=== PATIENT | female | born 1965 | race Caucasian/White ===

== ENCOUNTER 2020-02-02 12:44 | Emergency (ER) | payer BC ==
[2020-02-02 13:08] VITALS: O2SAT 99
[2020-02-02] MEDS ORDERED: BABY ASPIRIN 81 MG CHEW PO ONE (13:11)
[2020-02-02] MEDS ORDERED: Sodium Chloride 0.9% 1000 ML 1,000 ML IV SCH (13:15)
--- NOTE | 2020-02-02 13:16 | ERPHSYRPT ---
- History of Present Illness Time Seen by Provider: 02/02/20 13:15 Historian: patient Exam Limitations: no limitations Patient Subjective Stated Complaint: pt comes in with c/o chest pain that started 30 minutes [employer] and subsided after 10 minutes. 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 pt states she felt lightheaded, dizzy, sob, and crushing chest pain that she rated a 10/10 at that time. pt states that she rested and the pain went away. pt states that she currently has slight ache that she rates a 1/10. pt states the pain was in center of chest and did not radiate anywhere. pt skin is pwd at this time. pt is not diaphoretic. pt is not sob. radial pulses equal and strong. denies n/v. Triage Nursing Assessment: see above Physician History: pt comes in with c/o chest pain that started 30 minutes [employer] and subsided after 10 minutes. 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 pt states she felt lightheaded, dizzy, sob, and crushing chest pain that she rated a 10/10 at that time. pt states that she rested and the pain went away. pt states that she currently has slight ache that she rates a 1/10. pt states the pain was in center of chest and did not radiate anywhere. pt skin is pwd at this time. pt is not diaphoretic. pt is not sob. denies n/v. Timing/Duration: today Activities at Onset: activity Quality: pressure Location: central Chest Pain Radiation: no radiation Severity of Pain-Max: moderate Severity of Pain-Current: none Modifying Factors: Improves With: nothing Associated Symptoms: denies symptoms Prior Chest Pain/Cardiac Workup: no prior chest pain Nitro Today/Relief: no nitro taken today Aspirin Treatment Today: 81 mg x 1 Allergies/Adverse Reactions: bee venom protein (honey bee) Allergy (Verified 02/02/20 13:08) Home Medications: Atorvastatin Calcium [Lipitor] 20 mg PO DAILY 02/02/20 [History] PANTOPRAZOLE 40 mg Tablet [Protonix 40MG Tablet] 40 mg PO DAILY 02/02/20 [ History] Travel Risk - International Travel Have you traveled outside of the country in past 3 weeks: No Have you or anyone close to you been diagnosed with or: No Do your reside in a community with a known COVID-19 case?: Yes If Yes where:: [place] - Coronavirus Screening Has patient experienced Coronavirus symptoms: No - Review of Systems Constitutional: No Fever, No Chills Eyes: No Symptoms Ears, Nose, & Throat: No Symptoms Respiratory: No Cough, No Dyspnea Cardiac: Chest Pain, No Edema, No Syncope Abdominal/Gastrointestinal: No Abdominal Pain, No Nausea, No Vomiting, No Diarrhea Genitourinary Symptoms: No Dysuria Musculoskeletal: No Back Pain, No Neck Pain Skin: No Rash Neurological: No Dizziness, No Focal Weakness, No Sensory Changes Psychological: No Symptoms Endocrine: No Symptoms All Other Systems: Reviewed and Negative - Past Medical History Pertinent Past Medical History: Yes Neurological History: No Pertinent History ENT History: No Pertinent History Cardiac History: Other Respiratory History: No Pertinent History Endocrine Medical History: No Pertinent History Musculoskeletal History: No Pertinent History GI Medical History: Gallbladder Disease History: No Pertinent History Psycho-Social History: No Pertinent History Female Reproductive Disorders: No Pertinent History Other Medical History: "leaky valve" see Dr. Babin - Past Surgical History Past Surgical History: Yes Neuro Surgical History: No Pertinent History Cardiac: No Pertinent History Respiratory: No Pertinent History Gastrointestinal: Cholecystectomy, Hernia Repair Genitourinary: No Pertinent History Musculoskeletal: No Pertinent History Female Surgical History: No Pertinent History Other Surgical History: Gastric bypass, revision. - Social History Smoking Status: Never smoker Drug Use: none - Nursing Vital Signs Nursing Vital Signs: Initial Vital Signs Pulse Rate 59 L 02/02/20 12:44 Respiratory Rate 18 02/02/20 12:44 Blood Pressure 142/65 02/02/20 12:44 O2 Sat by Pulse Oximetry 99 02/02/20 12:44 Pain Scale Pain Intensity 0 - Physical Exam General Appearance: no apparent distress, alert Eye Exam: PERRL/EOMI, eyes nml inspection Ears, Nose, Throat Exam: normal ENT inspection, moist mucous membranes Neck Exam: normal inspection, non-tender, supple, full range of motion Respiratory Exam: normal breath sounds, lungs clear, No respiratory distress Cardiovascular Exam: regular rate/rhythm, normal heart sounds Gastrointestinal/Abdomen Exam: soft, No tenderness, No mass Back Exam: normal inspection, No CVA tenderness, No vertebral tenderness Extremity Exam: normal inspection, normal range of motion Neurologic Exam: alert, oriented x 3, cooperative, normal mood/affect, sensation nml, No motor deficits Skin Exam: normal color, warm, dry SpO2: 99 - Course Nursing assessment & vital signs reviewed: Yes Ordered Tests: Active Orders 24 hr Category Date Time Status Director Of Corporate Communications STAT Care 02/02/20 13:11 Active EKG-ER Only STAT Care 02/02/20 13:11 Active Oxygen-ED Only Nasal Cannula 2 lpm Care 02/02/20 13:11 Active CHEST 2 VIEWS (PA AND LAT) Stat Exams 02/02/20 13:11 Taken CBC W DIFF Stat Lab 02/02/20 13:11 Completed CMP Stat Lab 02/02/20 13:11 Completed TROPONIN Q3H Lab 02/02/20 13:15 Completed TROPONIN Q3H Lab 02/02/20 16:15 Ordered TROPONIN Q3H Lab 02/02/20 19:15 Ordered TROPONIN Q3H Lab 02/02/20 22:15 Ordered TROPONIN Q3H Lab 02/03/20 01:15 Ordered Medication Summary Generic Name Dose Route Start Last Admin Trade Name Freq PRN Reason Stop Dose Admin Sodium Chloride 1,000 mls @ 100 mls/hr 02/02/20 13:15 02/02/20 13:35 Sodium Chloride 0.9% 1000 Ml IV 03/03/20 13:14 100 mls/hr .Q10H MAHAMED Administration Discontinued Medications Generic Name Dose Route Start Last Admin Trade Name Freq PRN Reason Stop Dose Admin Aspirin 81 mg 02/02/20 13:11 02/02/20 13:38 Baby Aspirin 81 Mg Chew PO 02/02/20 13:12 Not Given STAT ONE Aspirin Confirm 02/02/20 13:29 Baby Aspirin 81 Mg Chew Administered 02/02/20 13:30 Dose 324 mg .ROUTE .NextFit-Desall ONE Lab/Rad Data: Laboratory Result Diagrams 02/02/20 13:11 02/02/20 13:11 Laboratory Results 02/02/20 02/02/20 02/02/20 Range/Units 13:15 13:11 13:11 WBC 7.0 (4.0-10.5) K/mm3 RBC 4.29 (4.1-5.4) M/mm3 Hgb 13.6 (12.0-16.0) gm/dl Hct 40.0 (35-47) % MCV 93.2 (78-100) fl MCH 31.7 (26-32) pg MCHC 34.0 (32-36) g/dl RDW 13.8 (11.5-14.0) % Plt Count 228 (150-450) K/mm3 MPV 10.7 (7.5-11.0) fl Gran % 43.1 (36.0-66.0) % Eos # (Auto) 0.21 (0-0.5) Absolute Lymphs (auto) 3.38 (1.0-4.6) Absolute Monos (auto) 0.35 (0.0-1.3) Lymphocytes % 48.5 H (24.0-44.0) % Monocytes % 5.0 (0.0-12.0) % Eosinophils % 3.0 (0.00-5.0) % Basophils % 0.4 (0.0-0.4) % Absolute Granulocytes 3.00 (1.4-6.9) Basophils # 0.03 (0-0.4) Sodium 141 (137-145) mmol/L Potassium 3.7 (3.5-5.1) mmol/L Chloride 104 (98-107) mmol/L Carbon Dioxide 29 (22-30) mmol/L Anion Gap 12.1 (5-15) MEQ/L BUN 11 (7-17) mg/dL Creatinine 0.64 (0.52-1.04) mg/dL Estimated GFR > 60.0 ML/MIN Glucose 99 (74-106) mg/dL Calcium 9.4 (8.4-10.2) mg/dL Total Bilirubin 0.40 (0.2-1.3) mg/dL AST 50 H (14-36) U/L ALT 34 (0-35) U/L Alkaline Phosphatase 161 H (38-126) U/L Troponin I < 0.012 (0.000-0.034) ng/mL Serum Total Protein 8.1 (6.3-8.2) g/dL Albumin 4.5 (3.5-5.0) g/dL - Progress Progress: improved Air Movement: good Progress Note: 02/02/20 14:21 Patient remained chest pain-free during ER visit. Patient EKG troponins and all other labs were within normal range. Patient blood pressure and other vitals remained within normal range during emergency room course. Patient is strongly advised to follow-up with her industrial accountant for further testing. She is advised to start isosorbide mononitrate 30 mg daily and aspirin 81 mg daily till she see her industrial accountant. If any symptoms recur advised to come back to emergency room. She is advised to stay off work for tomorrow. Blood Culture(s) Obtained: No Antibiotics given: No Counseled pt/family regarding: lab results, diagnosis, need for follow-up, rad results - Departure Departure Disposition: Home Clinical Impression: Chest pain with low risk for cardiac etiology, Angina of effort Condition: Stable Critical Care Time: Yes Critical Care Time(excluding separately billable procedures): Critical 30-74 mins Referrals: BLAIR WEN [Primary Care Provider] - Instructions: Chest Pain (DC), Atypical Chest Pain, Angina (DC) Additional Instructions: Please follow-up with her industrial accountant on Tuesday. Stay off work for tomorrow. You are prescribed medication for your angina symptoms which she had to take once a day until you see your industrial accountant. The main side effects is headache so please take Tylenol when you have a headache. If your symptoms recur or you develop more chest pain which stays more than 5 minutes come back to emergency room. Discharge/Care Plan ISRA GABRIEL was seen on 02/02/20 in the Emergency Room. The patient was counseled regarding Diagnosis,Lab results, Imaging studies, need for follow up and when to return to the Emergency Room. Prescriptions given: Discharge Note I have spoken with the patient and/or caregivers. I have explained the patient' s condition, diagnosis and treatment plan based on the information available to me at this time. I have answered the patient's and/or caregiver's questions and addressed any concerns. The patient and/or caregivers have as good understanding of the patient's diagnosis, condition and treatment plan as can be expected at this point. The vital signs have been stable. The patient's condition is stable and appropriate for discharge from the emergency department. The patient will pursue further outpatient evaluation with the primary care physician or other designated or consulting physician as outlined in the discharge instructions. The patient and/or caregivers are agreeable to this plan of care and follow-up instructions have been explained in detail. The patient and/or caregivers have received these instruction. The patient/and or caregivers are aware that any significant change in condition or worsening of symptoms should prompt an immediate return to this or the closest emergency department or call 911. ISRA GABRIEL was seen on 02/02/20 n the Emergency Room. At that time you were treated for an emergent condition, during your visit Laboratory, Radiology and/ or other procedures may have been ordered. It is very important that you follow- up with your Primary Care Physician BLAIR WEN within the next 24-48 hours to review your Emergency Room visit and the final results of testing that was ordered. Some test results such as Urine Cultures, Blood Cultures, and other cultures if ordered will not be finalized for 24-48 hours. If you do not have a Primary Care Provider please call the medical records department at [phone] ext [phone] to obtain a copy of your results or you may sign into our patient portal to obtain these results by visiting us @ [email or web address] and completing the following steps: 1. Click on the Patient Portal link 2. Click the Patient Self Enrollment Link to complete the enrollment form and entering your 3. Once the enrollment form is completed you will receive an email with a temporary ID and password at the email address you provided. 4. Next choose a user name and password. Your user name must be at least 4 characters long and your password must be at least 4 characters long. 5. Choose a security question from the list and provide your answer to the question. If you already have signed into the Health Portal you may access your Health Care Information 28/03 by the following steps: 1. Login to our website @ [email or web address] 2. Enter your original user name and password. FAQS The [facility] Health Portal is an online tool that contains your Lab Results, Radiology Reports, Visit History, Discharge Instructions and Health Summary Lab and Radiology Results will not be available for 72 hours on the portal. The Portal is a secure site, passwords are encryted and URLs are re-written so they cannot be copied and pasted. You and authorized family members are the only ones who can access your Portal. Also there is a timeout feature that protects your information if you leave the Portal page open. If you have technical difficulty please use the Contact Us link on the page this will allow you to submit any questions you have regarding the Portal or you may contact the Medical Record Department at [phone]. Prescriptions: Isosorbide Mononitrate 20 mg [monoKET 20 MG] 20 mg PO DAILY #30 tablet
[2020-02-02 13:23] LABS: BASOPHIL % 0.4 % (0.0-0.4); Basophil (Absolute #) 0.03 (0-0.4); Eosinophil (Absolute #) 0.21 (0-0.5); Hemoglobin 13.6 gm/dl (12.0-16.0); Lymphocyte (Absolute #) 3.38 (1.0-4.6); Lymphocytes % 48.5 % (24.0-44.0); Mean Cell Volume 93.2 fl (78-100); Mean Corpuscular Hemoglobin 31.7 pg (26-32); Mean Platelet Volume 10.7 fl (7.5-11.0); Monocyte (Absolute #) 0.35 (0.0-1.3); Neutrophil % 43.1 % (36.0-66.0); Platelet Count 228 K/mm3 (150-450); Red Blood Count 4.29 M/mm3 (4.1-5.4); Red Cell Distribution Width 13.8 % (11.5-14.0)
[2020-02-02] MEDS ORDERED: Sodium Chloride 0.9% 1000 ML 1,000 ML ONE (13:29)
[2020-02-02] MEDS ORDERED: BABY ASPIRIN 81 MG CHEW ONE (13:29)
[2020-02-02 13:30] LABS: ALBUMIN 4.5 g/dL (3.5-5.0); ALKALINE PHOSPHATASE 161 U/L (38-126); ANION GAP 12.1 MEQ/L (5-15); BLOOD UREA NITROGEN 11 mg/dL (7-17); CHLORIDE 104 mmol/L (98-107); Calcium 9.4 mg/dL (8.4-10.2); Carbon Dioxide 29 mmol/L (22-30); Creatinine 1 0.64 mg/dL (0.52-1.04); Glucose 99 mg/dL (74-106); Potassium 3.7 mmol/L (3.5-5.1); SGOT/AST 50 U/L (14-36); SGPT/ALT 34 U/L (0-35); SODIUM 141 mmol/L (137-145); Total Protein 8.1 g/dL (6.3-8.2)
[2020-02-02 14:36] VITALS: BP 134/86; PULSE 64
--- NOTE | 2020-02-02 20:46 | XRAY ---
Indication: Sternal chest pain, dizziness, sweating, and lightheadedness. Comparison: None PA/lateral chest demonstrates normal heart and lungs with incidental tiny posterior gutter calcified granuloma. Bony thorax intact.
== END 2020-02-02 14:42 | disposition home or self-care (01) ==
LOC: ED 12:44
DX: R07.9 Chest pain, unspecified (principal); I20.9 Angina pectoris, unspecified; R42 Dizziness and giddiness; R06.02 Shortness of breath
CPT/HCPCS: 36000; 36415; 71046; 80053; 84484; 85025; 93005; 93041; 99284; 99291; A9270-GY

== ENCOUNTER 2020-02-02 15:00 | Observation (INO) | payer BC ==
[2020-02-02] MEDS ORDERED: XYLOCAINE HCl Viscous ONE (15:10)
--- NOTE | 2020-02-02 15:10 | ERPHSYRPT ---
- History of Present Illness Time Seen by Provider: 02/02/20 15:07 Historian: patient Exam Limitations: no limitations Physician History: 54-year-old patient just discharged 5 minutes ago from the emergency room went out and started having substernal chest pain again so she came back. Please see the previous encounter ER notes for all other information. We are going to admit this patient as observation. Aspirin Treatment Today: 81 mg x 1 Allergies/Adverse Reactions: bee venom protein (honey bee) Allergy (Verified 02/02/20 13:08) Home Medications: Atorvastatin Calcium [Lipitor] 20 mg PO DAILY 02/02/20 [History] PANTOPRAZOLE 40 mg Tablet [Protonix 40MG Tablet] 40 mg PO DAILY 02/02/20 [ History] - Review of Systems Constitutional: No Fever, No Chills Eyes: No Symptoms Ears, Nose, & Throat: No Symptoms Respiratory: No Cough, No Dyspnea Cardiac: Chest Pain, No Edema, No Syncope Abdominal/Gastrointestinal: No Abdominal Pain, No Nausea, No Vomiting, No Diarrhea Genitourinary Symptoms: No Dysuria Musculoskeletal: No Back Pain, No Neck Pain Skin: No Rash Neurological: No Dizziness, No Focal Weakness, No Sensory Changes Psychological: No Symptoms Endocrine: No Symptoms All Other Systems: Reviewed and Negative - Past Medical History Pertinent Past Medical History: Yes Neurological History: No Pertinent History ENT History: No Pertinent History Cardiac History: Other Respiratory History: No Pertinent History Endocrine Medical History: No Pertinent History Musculoskeletal History: No Pertinent History GI Medical History: Gallbladder Disease History: No Pertinent History Psycho-Social History: No Pertinent History Female Reproductive Disorders: No Pertinent History Other Medical History: "leaky valve" see Dr. Babin - Past Surgical History Past Surgical History: Yes Neuro Surgical History: No Pertinent History Cardiac: No Pertinent History Respiratory: No Pertinent History Gastrointestinal: Cholecystectomy, Hernia Repair Genitourinary: No Pertinent History Musculoskeletal: No Pertinent History Female Surgical History: No Pertinent History Other Surgical History: Gastric bypass, revision. - Social History Smoking Status: Never smoker Drug Use: none - Physical Exam General Appearance: no apparent distress, alert Eye Exam: PERRL/EOMI, eyes nml inspection Ears, Nose, Throat Exam: normal ENT inspection, moist mucous membranes Neck Exam: normal inspection, non-tender, supple, full range of motion Respiratory Exam: normal breath sounds, lungs clear, No respiratory distress Cardiovascular Exam: regular rate/rhythm, normal heart sounds Gastrointestinal/Abdomen Exam: soft, No tenderness, No mass Back Exam: normal inspection, No CVA tenderness, No vertebral tenderness Extremity Exam: normal inspection, normal range of motion Neurologic Exam: alert, oriented x 3, cooperative, normal mood/affect, sensation nml, No motor deficits Skin Exam: normal color, warm, dry - Course Nursing assessment & vital signs reviewed: Yes - Progress Progress: unchanged Discussed with : Kylie Counseled pt/family regarding: lab results, diagnosis, need for follow-up, rad results - Departure Departure Disposition: Observation Clinical Impression: Chest pain with low risk for cardiac etiology Condition: Fair Critical Care Time: No Referrals: BLAIR WEN [Primary Care Provider] -
[2020-02-02] MEDS ORDERED: MAALOX ES 30 ML UNIT DOSE ONE (15:11)
[2020-02-02] MEDS ORDERED: GI COCKTAIL 45 ML (Maalox/Lidocaine) PO ONE (15:16)
[2020-02-02] MEDS ORDERED: Pepcid 20 MG VIAL IV ONE ×2 (15:30→15:31)
[2020-02-02] MEDS ORDERED: Zofran 4 MG/2 ML VIAL IV ONE (16:05)
[2020-02-02] MEDS ORDERED: Zofran 4 MG/2 ML VIAL ONE (16:05)
[2020-02-02] MEDS ORDERED: Zofran 4 MG/2 ML VIAL IV PRN (16:39)
[2020-02-02] MEDS ORDERED: MAALOX ES 30 ML UNIT DOSE PO PRN (16:39)
[2020-02-02] MEDS ORDERED: Sodium Chloride 0.9% 500 ML 500 ML IV SCH (16:39)
[2020-02-02] MEDS ORDERED: TYLENOL 325 MG PO PRN (16:39)
[2020-02-02] MEDS ORDERED: MILK OF MAGNESIA 30 ML PO PRN (16:39)
[2020-02-02] MEDS ORDERED: MORPHINE SULFATE 2 MG INJ IV PRN (16:39)
[2020-02-02] MEDS ORDERED: Senokot-S Tablet PO PRN (16:39)
[2020-02-02] MEDS ORDERED: ZOCOR 20MG PO SCH (22:00)
[2020-02-02] MEDS: Pepcid 20 MG VIAL IV SCH (23:00)
[2020-02-02] MEDS: NITRO-BID 2% UD PACKETS TOP SCH (23:07)
[2020-02-03] MEDS: NITRO-BID 2% UD PACKETS TOP SCH (05:20)
[2020-02-03 08:31] VITALS: PULSE 66
[2020-02-03] MEDS: Pepcid 20 MG VIAL IV SCH (09:39)
[2020-02-03] MEDS ORDERED: Protonix 40MG Tablet PO SCH (10:00)
[2020-02-03] MEDS ORDERED: monoKET 20 MG PO SCH (10:00)
[2020-02-03 12:07] VITALS: BP 92/51; O2SAT 96
--- NOTE | 2020-02-03 13:09 | PCM.SSS ---
History of Present Illness - Chief Complaint Chief Complaint: chest pain r/o [place], Hx of gastric bypass surgery History of Present Illness: is a 54 year old female pt of Tawana Cordova with obesity (s/p gastric bypass), hyperlipidemia, peptic ulcer dz, and hiatal hernia who was admitted through ER with chest pain to rule out [place]. She had been in the ER earlier in the evening with chest pain, given a GI cocktail and the pain resolved so pt left. She was still in her car when she started having pain again - substernal , 10/10 sharp pain, onradiating, lasted 10 min. Pt was diaphoretic, SOB, nauseated, and having palpitations. Last night the chest was just "bruised feeling" and today there is no pain at all. Pt has FHx of heart disease - her mom had CABG and stents, CHF - beginning in her mid 50s. PGM of [place] in her 70s. Pt has never been a smoker. Does not drink for years (used to be a social drinker). Pt had a Lexiscan stress test and echo in Sep [address] Elliott - was supposed to f/u with him in December but was only able to do telephone consult due to COVID. Pt's troponins have been neg x 5 here, and EKGs nonacute (NSR and sinus bradycardia, no ST changes indicative of ischemia). - Review of Systems Respiratory: Short Of Breath Cardiac: Chest Pain, Edema (occ in LE), Palpitations Neurological: Dizziness (yesterday ) Psychological: Other (diaphoresis) Medications & Allergies Home Medications: Home Medication List Atorvastatin Calcium [Lipitor] 20 mg PO HS 02/02/20 [History Confirmed 02/02/20] Isosorbide Mononitrate 20 mg [monoKET 20 MG] 20 mg PO DAILY #30 tablet 02/01 [Rx Confirmed 02/02/20] PANTOPRAZOLE 40 mg Tablet [Protonix 40MG Tablet] 40 mg PO DAILY 02/02/20 [ History Confirmed 02/02/20] Allergies/Adverse Reactions: Allergies Allergy/AdvReac Type Severity Reaction Status Date / Time bee venom protein (honey bee) Allergy Verified 02/02/20 13:08 - Past Medical History Past Medical History: Yes Neurological History: No Pertinent History ENT History: No Pertinent History Cardiac History: Other Respiratory History: No Pertinent History Endocrine Medical History: No Pertinent History Musculoskelatal History: No Pertinent History GI Medical History: Gallbladder Disease History: No Pertinent History Pyscho-Social History: No Pertinent History Reproductive Disorders: No Pertinent History Comment: "leaky valve" see Dr. Babin - Female History Are you now?: No - Past Surgical History Past Surgical History: Yes Neuro Surgical History: No Pertinent History Cardiac History: No Pertinent History Respiratory Surgery: No Pertinent History GI Surgical History: Cholecystectomy, Hernia Repair Genitourinary Surgical Hx: No Pertinent History Musculskeletal Surgical Hx: No Pertinent History Female Surgical History: No Pertinent History Other Surgical History: Gastric bypass, revision. Intestines removed. - Social History Smoking Status: Never smoker Exposure to second hand smoke: No Alcohol: None Drug Use: none - Physical Exam Vital Signs: Vital Signs - 24 hr Temp Pulse Pulse Resp BP Pulse Ox 02/03/20 12:06 98.1 F 66 18 92/51 96 02/03/20 08:00 97.6 F 66 18 121/60 94 L 02/03/20 04:00 97.7 F 55 L 18 125/56 96 02/02/20 23:39 97.6 F 62 18 133/66 97 02/02/20 20:00 97.9 F 62 19 136/62 94 L 02/02/20 17:02 97.9 F 74 16 129/98 98 02/02/20 16:39 97.9 F 74 16 129/98 98 02/02/20 16:04 56 L 16 137/67 99 02/02/20 15:05 98 F 66 66 22 95/68 98 General Appearance: no apparent distress, alert, obese Neurologic Exam: oriented x 3, cooperative Eye Exam: eyes nml inspection Ears, Nose, Throat Exam: moist mucous membranes Neck Exam: normal inspection Respiratory Exam: normal breath sounds, lungs clear, No crackles/rales, No rhonchi, No wheezing Cardiovascular Exam: regular rate/rhythm, normal heart sounds, No murmur Gastrointestinal/Abdomen Exam: soft, normal bowel sounds, No tenderness, No distention, No mass, No guarding, No rebound Extremity Exam: No pedal edema, No swelling Skin Exam: normal color, warm, dry, No rash Results - Labs Lab/Micro Results: Lab Results-Last 24 Hours 0502/02/20 02/02/20 Range/Units 17:29 20:34 23:29 Troponin I < 0.012 < 0.012 < 0.012 (0.000-0.034) ng/mL Triglycerides (30-150) mg/dL Cholesterol (50-200) mg/dL LDL Cholesterol (30-100) mg/dL HDL Cholesterol (40-60) mg/dL Heart Disease Risk Ratio 02/03/20 02/03/20 Range/Units 03:17 03:17 Troponin I < 0.012 (0.000-0.034) ng/mL Triglycerides 127 (30-150) mg/dL Cholesterol 169 (50-200) mg/dL LDL Cholesterol 109 H (30-100) mg/dL HDL Cholesterol 56 (40-60) mg/dL Heart Disease Risk Ratio 3.0 - Other Procedures and Tests Respiratory Therapy 02/04/20 05:00 EKG DAILY 02/05/20 05:00 EKG ONCE Assessment/Plan (1) Chest pain Current Visit: Yes Status: Acute Qualifiers: Chest pain type: other chest pain Qualified Code(s): R07.89 - Other chest pain; R07.8 - Other chest pain Assessment & Plan: [place] ruled out. She needs to see Dr. Elliott sooner than her next scheduled appointment in 3 months - she needs to contact them tomorrow (Tuesday) and let them know that she was in the hospital overnight for chest pain ruleout. Code(s): R07.9 - CHEST PAIN, UNSPECIFIED (2) History of gastric bypass Current Visit: Yes Status: Chronic Code(s): Z98.84 - BARIATRIC SURGERY STATUS (3) Obesity Current Visit: Yes Status: Chronic Qualifiers: Obesity type: due to excess calories Obesity classification: adult class 2 (BMI 35 - 39.9) Code(s): E66.9 - OBESITY, UNSPECIFIED Hospital Summary - Vitals & Intake/Output Vital Signs: Vital Signs Temperature 98.1 F 02/03/20 12:06 Pulse Rate 66 02/03/20 12:06 Respiratory Rate 18 02/03/20 12:06 Blood Pressure 92/51 02/03/20 12:06 O2 Sat by Pulse Oximetry 96 02/03/20 12:06 Intake & Output: Intake & Output 02/01/20 02/02/20 02/03/20 02/04/20 11:59 11:59 11:59 11:59 Intake Total 1145 320 Output Total 500 Balance 645 320 Weight 95.5 kg - Lab Lab Results-Last 24 Hrs: Lab Results-Last 24 Hours 02/02/20 02/02/20 02/02/20 Range/Units 17:29 20:34 23:29 Troponin I < 0.012 < 0.012 < 0.012 (0.000-0.034) ng/mL Triglycerides (30-150) mg/dL Cholesterol (50-200) mg/dL LDL Cholesterol (30-100) mg/dL HDL Cholesterol (40-60) mg/dL Heart Disease Risk Ratio 02/03/20 02/03/20 Range/Units 03:17 03:17 Troponin I < 0.012 (0.000-0.034) ng/mL Triglycerides 127 (30-150) mg/dL Cholesterol 169 (50-200) mg/dL LDL Cholesterol 109 H (30-100) mg/dL HDL Cholesterol 56 (40-60) mg/dL Heart Disease Risk Ratio 3.0 - Procedures and Test Procedures and Tests throughout Hospitalization: Therapy Orders & Screens 02/02/20 21:00 EKG ONCE Comment: Diagnosis: chest pain r/o [place], Hx of gastric bypass surgery 02/03/20 05:00 EKG ONCE Comment: Diagnosis: chest pain r/o [place], Hx of gastric bypass surgery 02/04/20 05:00 EKG DAILY Comment: Diagnosis: chest pain r/o [place], Hx of gastric bypass surgery 02/05/20 05:00 EKG ONCE Comment: Diagnosis: chest pain r/o [place], Hx of gastric bypass surgery - Discharge Disposition: Home, Self-Care Condition: Fair Prescriptions: No Action PANTOPRAZOLE 40 mg Tablet [Protonix 40MG Tablet] 40 mg PO DAILY Atorvastatin Calcium [Lipitor] 20 mg PO HS Isosorbide Mononitrate 20 mg [monoKET 20 MG] 20 mg PO DAILY #30 tablet Instructions: Chest Pain (DC) Forms: Discharge Instructions, Work/School Release Form
--- NOTE | 2020-02-03 13:17 | PCM.DCORD ---
- Discharge Disposition: Home, Self-Care Condition: Good Prescriptions: New Mag Hydrox/Al Hydrox/Simeth [Maalox Es 30 ml Unit Dose] 30 ml PO Q4H PRN PRN udcup PRN Reason: Indigestion Continue PANTOPRAZOLE 40 mg Tablet [Protonix 40MG Tablet] 40 mg PO DAILY Atorvastatin Calcium [Lipitor] 20 mg PO HS Isosorbide Mononitrate 20 mg [monoKET 20 MG] 20 mg PO DAILY #30 tablet Instructions: Chest Pain (DC) Follow up with: BLAIR WEN [Primary Care Provider] - 1 Week Forms: Discharge Instructions, Work/School Release Form
== END 2020-02-03 14:48 | disposition home or self-care (01) ==
LOC: ED 15:00 → MED SURG 16:37
PROVIDERS: ADMIT Family Medicine; ATTEND Family Medicine
DX: R07.9 Chest pain, unspecified (principal); Z98.84 Bariatric surgery status; E78.5 Hyperlipidemia, unspecified; K44.9 Diaphragmatic hernia without obstruction or gangrene; K27.9 Peptic ulcer, site unspecified, unspecified as acute or chronic, without hemorrhage or perforation; R42 Dizziness and giddiness; R06.02 Shortness of breath; R00.2 Palpitations; E66.9 Obesity, unspecified; Z68.35 Body mass index [BMI] 35.0-35.9, adult; Z79.899 Other long term (current) drug therapy
CPT/HCPCS: 36000; 36415; 71046; 80053; 80061; 83721; 84484; 85025; 93005; 93041; 93268; 96374; 96375; 99284; 99285; 99291; G0378; J2405; A9270-GY

== ENCOUNTER 2021-02-27 08:47 | Emergency (ER) | payer BC, OTHER ==
--- NOTE | 2021-02-27 09:26 | ERPHSYRPT ---
- History of Present Illness Time Seen by Provider: 02/27/21 09:20 Source: patient Exam Limitations: no limitations Patient Subjective Stated Complaint: L upper arm pain, contusion from work yesterday Triage Nursing Assessment: pt to ED c/o L upper arm pain from walking into lever at work yesterday. noted large contusion to L upper arm that is warm to touch. pt states pain is nothing at rest but up to 5/10 with pressure. full ROM. no hx DVT Physician History: Patient is a 55-year-old white female who is employed at the [employer] she was walking through a gait which a lever was shifted and caused a blow directly to the biceps muscle left upper arm she has a large bruised area which has heat. She has full range of motion. This occurred just prior to yesterday. Method of Injury: direct blow Quality: constant Severity of Pain-Max: moderate Severity of Pain-Current: moderate Extremities Pain Location: arm: left Modifying Factors: Improves With: movement Associated Symptoms: none Allergies/Adverse Reactions: bee venom protein (honey bee) Allergy (Verified 02/02/20 13:08) Home Medications: PANTOPRAZOLE 40 mg Tablet [Protonix 40MG Tablet] 40 mg PO DAILY 02/02/20 [History] Hx Tetanus, Diphtheria Vaccination/Date Given: Yes Hx Influenza Vaccination/Date Given: No Hx Pneumococcal Vaccination/Date Given: No Immunizations Up to Date: No Travel Risk - International Travel Have you traveled outside of the country in past 3 weeks: No - Coronavirus Screening Are you exhibiting any of the following symptoms?: No Close contact with a COVID-19 positive Pt in past 14-21 Days: No - Vaccine Status Have you recieved a Covid-19 vaccination: No - Review of Systems Constitutional: No Fever, No Chills Eyes: No Symptoms Ears, Nose, & Throat: No Symptoms Respiratory: No Cough, No Dyspnea Cardiac: No Chest Pain, No Edema, No Syncope Abdominal/Gastrointestinal: No Abdominal Pain, No Nausea, No Vomiting, No Diarrhea Genitourinary Symptoms: No Dysuria Musculoskeletal: No Back Pain, No Neck Pain Skin: No Rash Neurological: No Dizziness, No Focal Weakness, No Sensory Changes Psychological: No Symptoms Endocrine: No Symptoms All Other Systems: Reviewed and Negative - Past Medical History Pertinent Past Medical History: Yes Neurological History: No Pertinent History ENT History: No Pertinent History Cardiac History: Other Respiratory History: No Pertinent History Endocrine Medical History: No Pertinent History Musculoskeletal History: No Pertinent History GI Medical History: GERD, Gallbladder Disease History: No Pertinent History Psycho-Social History: No Pertinent History Female Reproductive Disorders: No Pertinent History Other Medical History: "leaky valve" see Dr. Babin - Past Surgical History Past Surgical History: Yes Neuro Surgical History: No Pertinent History Cardiac: No Pertinent History Respiratory: No Pertinent History Gastrointestinal: Cholecystectomy, Hernia Repair Genitourinary: No Pertinent History Musculoskeletal: No Pertinent History Female Surgical History: No Pertinent History Other Surgical History: Gastric bypass, revision. Intestines removed. - Social History Smoking Status: Never smoker Exposure to second hand smoke: No Drug Use: none Patient Lives Alone: No - Female History Hx Now: No (menopause) - Nursing Vital Signs Nursing Vital Signs: Initial Vital Signs Temperature 97.9 F 02/27/21 09:09 Pulse Rate 51 L 02/27/21 09:09 Respiratory Rate 18 02/27/21 09:09 Blood Pressure 146/72 02/27/21 09:09 O2 Sat by Pulse Oximetry 97 02/27/21 09:09 Pain Scale Pain Intensity 0 - Physical Exam General Appearance: alert Eyes, Ears, Nose, Throat Exam: moist mucous membranes Neck Exam: non-tender, supple Cardiovascular/Respiratory Exam: chest non-tender, normal breath sounds, regular rate/rhythm, no respiratory distress Abdominal Exam: non-tender, No guarding Back Exam: normal inspection, No vertebral tenderness Shoulder Exam: soft tissue tenderness (Examination of the left upper extremity from the shoulder to the elbow does show a large ecchymotic area about 10 cm in diameter warm to the touch there is a full range of motion good strength with flexion of the elbow the biceps appears to be intact), swelling Elbow/Forearm Exam: normal inspection Wrist Exam: normal inspection Hand Exam: normal inspection Neuro/Tendon Exam: normal sensation, normal motor functions Mental Status Exam: alert, oriented x 3, cooperative Skin Exam: normal color, warm, dry SpO2: 97 - Course Nursing assessment & vital signs reviewed: Yes - Radiology Exams Left Humerus X-ray Interpretation: Interpreted by me, Negative - Radiology Ultrasound Exam Venous Upper Extremity Ultrasound: Other (Initial report is of no venous thrombosis there is a hematoma no sign of infection.) Ordered Tests: Active Orders 24 hr Category Date Time Status HUMERUS Stat Exams 02/27/21 08:58 Completed Ultrasound Unilateral Extremities [VENOUS UNILAT/ Exams 02/27/21 10:05 Ordered LIMITED EXTREMIT] [US] Stat - Departure Clinical Impression: Contusion of arm, left Condition: Stable Critical Care Time: No Referrals: [facility] [Primary Care Provider] - Instructions: Contusion (DC)
--- NOTE | 2021-02-27 09:58 | XRAY ---
Exam: Two-view left humerus study from 02/27/2021. Comparison: None. Indication: Patient struck mid left humerus at work, bruising, pain. Findings: 2 AP views of the left humerus in different projections were obtained. I see no acute fracture or other focal bone lesion. The soft tissues about the left arm appear unremarkable. The left shoulder joint space is not seen in profile. The left elbow joint space appears unremarkable. Impression: 1. No acute left humerus fracture is seen.
[2021-02-27 11:11] VITALS: BP 138/86; PULSE 54
[2021-02-27 11:32] VITALS: O2SAT 97
--- NOTE | 2021-02-27 13:24 | XRAY ---
Exam: Duplex Doppler venous ultrasound examination of the left upper extremity from 02/27/2021. Comparison: None. Indication: Left upper extremity bruise; rule out left upper extremity DVT. Findings: The left internal jugular vein reveals normal color blood flow and transducer compression. Doppler signal is normal at this level. The left subclavian vein also reveals normal color blood flow and Doppler signal. Normal transducer compression, color blood flow, and Doppler signal are seen within factory representative segments of the left axillary vein, proximal, mid, and distal left brachial vein, basilic vein, cephalic vein, radial vein, and ulnar vein. No echogenic thrombus was seen. In addition, sonogram images were obtained of the mid upper outer aspect of the left arm at the area of concern. There is a focal area of mixed echogenicity and sonolucency, collectively measuring 2.9 cm x 1.5 cm x 2.9 cm which is believed to represent a soft tissue hematoma. A few areas of sonolucency are seen within this region, the largest oval area measuring 1.1 cm in greatest diameter followed by another round area of sonolucency measuring 0.7 cm in diameter. No significant increased color blood flow is seen at these sites. Impression: 1. I see no evidence of deep venous thrombosis within the left upper extremity. 2. At the area of concern, there appears to be an oval-shaped hematoma measuring 2.9 cm x 1.5 cm x 2.9 cm. Also, this site reveals heterogeneous echogenic density, although there are at least a couple small areas of sonolucency seen within this hematoma. No significant increased color blood flow is seen at this site.
== END 2021-02-27 11:54 | disposition home or self-care (01) ==
LOC: ED 08:47
DX: S40.022A Contusion of left upper arm, initial encounter (principal); M79.622 Pain in left upper arm; W22.8XXA Striking against or struck by other objects, initial encounter; Y92.149 Unspecified place in prison as the place of occurrence of the external cause; Y99.0 Civilian activity done for income or pay
CPT/HCPCS: 73060; 93971; 99283

== ENCOUNTER 2021-10-13 06:25 | Day surgery (SDC) | payer BC ==
[2021-10-13] MEDS ORDERED: Lactated Ringers 1,000 ML IV SCH (07:00)
[2021-10-13] MEDS ORDERED: Lactated Ringers 1,000 ML IV ONE (07:14)
[2021-10-13] MEDS ORDERED: KEFZOL 1 GM/50 ML PREMIX** 1 GM/50 ML IVPB IV SCH (07:15)
[2021-10-13 07:19] VITALS: O2SAT 97
[2021-10-13] MEDS ORDERED: SUBLIMAZE 100 MCG/2 ML ONE ×2 (07:58→09:15)
[2021-10-13] MEDS ORDERED: Decadron 4 MG INJ ONE (07:58)
[2021-10-13] MEDS ORDERED: Xylocaine-Mpf 2% 5 Ml Vial ONE ×2 (07:58→08:06)
[2021-10-13] MEDS ORDERED: Versed 2 MG/2 ML Injection ONE (07:58)
[2021-10-13] MEDS ORDERED: DIPRIVAN 200 MG/20 ML IV ONE ×2 (07:58→08:06)
[2021-10-13] MEDS ORDERED: Zofran 4 MG/2 ML VIAL ONE (07:58)
[2021-10-13] MEDS ORDERED: ROBINUL ONE (08:52)
[2021-10-13] MEDS ORDERED: Quelicin Fliptop 200 MG/10 ML ONE (09:01)
[2021-10-13] MEDS ORDERED: APRESOLINE 20 MG/ML INJ ONE (09:43)
[2021-10-13 11:20] VITALS: BP 141/89; PULSE 81
--- NOTE | 2021-10-14 09:03 | OP ---
SURGERY DATE/TIME: 10/13/2021 0839 PREOPERATIVE DIAGNOSIS: Postmenopausal bleeding. POSTOPERATIVE DIAGNOSIS: Postmenopausal bleeding. PROCEDURE: Hysteroscopy, D&C. SURGEON: Sachin Moser D.O. SPREADER: Aliya Arriola surgical first assistant. ANESTHESIA: General. ESTIMATED BLOOD LOSS: Minimal. COMPLICATIONS: None. INDICATIONS: The risks, benefits, indications and alternatives of the procedure were reviewed with the patient prior to the procedure. The patient understood the risk of infection, bleeding, bowel injury, bladder injury, ureteral injury, uterine perforation associated with the surgery and desires to have this surgery as a possible means to alleviate her current medical condition. DESCRIPTION OF PROCEDURE AND FINDINGS: At this point the patient is taken to the operating room, given general sedation, placed in dorsal lithotomy position, prepped and draped in the usual sterile fashion. A weighted speculum is then placed in the patient's vagina and the anterior lip of the cervix was grasped with a single tooth tenaculum. Endocervical dilators were advanced through the endocervical canal as a means to dilate the cervix and the uterus was sounded to approximately 7 cm. From this point a 5 mm hysteroscope was then placed through the endocervical region where visualization of the endometrial lining appeared to be within normal limits with no gross abnormalities within the uterine cavity. The hysteroscope was then removed and a curette was then placed into the fundus of the uterus and curettage performed in all quadrants of the uterus retrieving a mild to moderate amount of tissue. From this point hemostasis was obtained. From this point all subsequent instruments were removed from the patient's vaginal region. The patient was then taken out of dorsal lithotomy position, was taken out of anesthesia and was then taken to the recovery room in stable condition.
== END 2021-10-13 10:45 | disposition home or self-care (01) ==
LOC: SDC 06:25
PROVIDERS: ATTEND Obstetrics & Gynecology
DX: N95.0 Postmenopausal bleeding (principal)
CPT/HCPCS: 84703; 88305; J0330; J0360; J0690; J1100; J2250; J2405; J2704; J3010